=== PATIENT | male | born 1960 | race Caucasian/White ===

== ENCOUNTER 2019-07-03 09:59 | Day surgery (SDC) | payer BC ==
[2019-06-30 11:32] VITALS: BMI 29.7
[~2019-07-03 09:59] MED LIST: LACTATED RINGERS 1,000 ML IV SCH; LIDOCAINE 1% 20 ML VIAL (10MG/ML) FOR IV START INTRADERMA PRN
[2019-07-03 10:58] VITALS: RESP 16; TEMP 97.8
[2019-07-03] MEDS ORDERED: PROPOFOL 10 MG/ML 20 ML VIAL IV ONE (11:27)
--- NOTE | 2019-07-03 11:53 | P.PCN ---
Date of Procedure: 07/03/19 Procedure(s) Performed: BRIEF HISTORY: Patient is a 58 year-old pleasant white male scheduled for an elective colonoscopy as a part of screening for colorectal neoplasia. PROCEDURE PERFORMED: Colonoscopy with biopsy. PREOPERATIVE DIAGNOSIS: screening for colon cancer. IV sedation per Anesthesia. PROCEDURE: After informed consent was obtained, the patient, was brought into the endoscopy unit. IV sedation was administered by Anesthesia under continuous monitoring. Digital rectal examination was normal. Initially the Olympus CF-160 flexible video colonoscope was then inserted in the rectum, gradually advanced into the cecum without any difficulty. Careful examination was performed as the scope was gradually being withdrawn. Ileocecal valve and the appendiceal orifice were visualized and appeared normal. Prep was excellent. Mucosa of the cecum, ascending colon, transverse colon, descending colon, sigmoid colon, appeared normal. in the rectum there was erythema friability and granularity of the mucosa with spontaneous oozing consistent with moderate to severe proctitis and this extended up to 80 cm from the anal was in multiple biopsies were done from this area. Retroflexion was performed in the rectum and no lesions were seen. The patient tolerated the procedure well. IMPRESSION: Moderate to severe proctitis with mucosal erythema, friability and granularity of the 80 cm from the anal verge status post multiple biopsies Rest of the colon appeared normal RECOMMENDATIONS: Findings of this examination were discussed with the patient As well as his family. He was advised to follow with the biopsy results and he'll be seen in office in 2 weeks.
[2019-07-03 12:10] VITALS: BP 123/78; PULSE 63
== END 2019-07-03 12:53 | disposition home or self-care (01) ==
LOC: ORWHC2ENDO 09:59
PROVIDERS: ATTEND Internal Medicine Gastroenterology
DX: Z12.11 Encounter for screening for malignant neoplasm of colon (principal); K52.9 Noninfective gastroenteritis and colitis, unspecified; K50.10 Crohn's disease of large intestine without complications; I10 Essential (primary) hypertension; E78.5 Hyperlipidemia, unspecified; E07.9 Disorder of thyroid, unspecified; M19.90 Unspecified osteoarthritis, unspecified site; Z79.890 Hormone replacement therapy; Z79.899 Other long term (current) drug therapy; Z88.5 Allergy status to narcotic agent
CPT/HCPCS: 88305; 45380; J2704

== ENCOUNTER → 2020-10-03 | Outpatient (CLI) | payer BC ==
--- NOTE | 2020-10-03 13:52 | EST ---
EXERCISE STRESS AGE: 60 SEX: M HT: 6 ft. WT: 224 lbs. PROTOCOL: Julián STAGE: 3 DURATION OF EXERCISE: 7:30 HEART RATE REST: 65 BLOOD PRESSURE REST: 164/90 MAXIMUM HEART RATE ACHIEVED: 137 MAXIMUM BLOOD PRESSURE: 211/103 85% MPHR: 136 100% MPHR: 160 METS: 9.1 INDICATIONS: Palpitations CLINICAL INFORMATION: Baseline rhythm is sinus mechanism, rate 65, normal axis and intervals. Normal electrocardiogram. Baseline blood pressure 164/90 mmHg. Patient exercised on Julián protocol for 7 minutes 30 seconds reaching peak rate 137 beats per minute which is equal to 85% maximum predicted heart rate. Peak blood pressure 211/103 mmHg. Test was terminated due to significant fatigue. There was no chest pain. Electrocardiograph monitoring revealed no evidence of diagnostic ischemic ST deviation. Rare PACs were noted. CONCLUSION: 1. Average exercise tolerance with normal echocardiograph response to exercise. 2. Rare PVCs. 3. No symptoms were reported. MMODL / IJN: [id number] /
== END | disposition home or self-care (01) ==
LOC: RADNMMAIN 08:26
PROVIDERS: ATTEND Family Medicine
DX: R00.2 Palpitations (principal); R07.9 Chest pain, unspecified
CPT/HCPCS: 93017

== ENCOUNTER → 2021-12-21 | Outpatient (CLI) | payer MEDICAID ==
--- NOTE | 2021-12-21 14:49 | MM ---
Reason for Exam: Clinical finding. Last mammogram was performed 13 year(s) and 2 month(s) ago. Indicated Problems: Lump or thickening of the left side (size 25) for 1 Month(s). Prior Study Comparison: 10/29/2008 Bilateral Diagnostic Mammogram, [facility]. Tissue Density: The breast tissue is almost entirely fat. Findings: Analyzed By CAD. There is increasing left-sided gynecomastia relative to the prior study. There is improved right-sided although persistent gynecomastia right breast. No masses, distortion or suspicious calcifications. Overall Assessment: Benign, BI-RAD 2 Management: Clinical Management in 1 day. A clinical breast exam by your physician is recommended on an annual basis and results should be correlated with mammographic findings. This exam should not preclude additional follow-up of suspicious palpable abnormalities. Results were given to the patient verbally at the time of exam. Electronically signed and approved by: Kenrick Macias M.D. [facility]
== END | disposition home or self-care (01) ==
LOC: RADMAMWWP 12:41
PROVIDERS: ATTEND Family Medicine
DX: R92.8 Other abnormal and inconclusive findings on diagnostic imaging of breast (principal)
CPT/HCPCS: 77062; 77066